=== PATIENT | male | born 1960 | race Caucasian/White ===

== ENCOUNTER 2023-11-05 01:46 | Emergency (ER) | payer SELFPAY ==
[2023-11-05] MEDS: HYDROmorphone 1 MG/ML Syringe IM ONE (02:15)
[2023-11-05] MEDS: Diphtheria,Pertussis(Acell),Tetanus Vaccine 0.5 ML Syringe IM ONE (03:19)
== END 2023-11-05 03:29 | disposition home or self-care (01) ==
LOC: JP.ED 01:46
DX: S51.812A Laceration without foreign body of left forearm, initial encounter (principal); Z23 Encounter for immunization; W26.8XXA Contact with other sharp object(s), not elsewhere classified, initial encounter
CPT/HCPCS: 12005; 13121; 13122; 90471; 90715; 96372; 99282; 99283; J1170